=== PATIENT | female | born 1985 | race Caucasian/White ===

== ENCOUNTER → 2018-08-31 | Outpatient (CLI) | payer BC ==
--- NOTE | 2018-08-31 17:08 | Diagnostic Imaging Report ---
INDICATION: survey. TECHNIQUE: Multiple real-time grayscale images were obtained over the gravid uterus. COMPARISON: None. FINDINGS: Placenta is posterior without evidence of previa. cardiac activity is noted with a rate of 143 beats per minute. No anomalies identified however the umbilical cord insertion site is not well appreciated. biometry indicates gestational age of 26 weeks and 6 days. Amniotic fluid levels are unremarkable. There is no maternal adnexal region abnormality. IMPRESSION: 1. Unremarkable obstetrical ultrasound although umbilical cord insertion was not visualized. 2. Estimated gestational age is 26 weeks and 6 days with sonographic EDC of 12/01/2018. Biometrical measurements are as follows: Biparietal 6.27 cm, age 25 weeks 3 days. Head circumference 24.33 cm, age 26 weeks 3 days. Abdominal circumference 22.28 cm, age 26 weeks 5 days. Femur length 5.34 cm, age 28 weeks 3 days. Sonographic estimate age: 26 weeks 6 days. Sonographic estimated date of delivery: 12/01/18. Estimated Weight: 1035 gm (+/- 151 gm). LMP percentile: 69%. heart rate: 143 beats per minute. number: 1 of 1. Dictated by: Dictated on workstation # [id number]
== END ==
LOC: RAD 11:52
PROVIDERS: ATTEND Obstetrics & Gynecology
DX: Z36.89 Encounter for other specified antenatal screening (principal); Z3A.26 26 weeks gestation of pregnancy
CPT/HCPCS: 76805

== ENCOUNTER 2018-11-25 22:54 | Inpatient (IN) | payer BC ==
[~2018-11-25] VITALS: Ht 177.8 cm; Wt 112.0 kg
--- NOTE | 2018-11-25 23:00 | NUR ---
ROLDAN IVEY presented to unit via ambulation from ED, accompanied by family, with c/o WATER BROKE/CONTRACTIONS. ROLDAN IVEY weighed, gowned, voided, and to bed. EFHM and TOCO applied, VS taken. ROLDAN IVEY oriented to bed controls, call light, TV, heat, and A/C controls.
[2018-11-25 23:05] VITALS: BP 149/85
[2018-11-25] MEDS ORDERED: D5 LR IV SOLUTION 1,000 ML IV ONE (23:05)
[2018-11-25] MEDS ORDERED: AMPICILLIN FOR IV USE 2,000 MG VIAL ONE (23:09)
[2018-11-25] MEDS ORDERED: WATER (STERILE) FOR INJECTION 20 ML ONE (23:09)
[2018-11-25] MEDS ORDERED: PREN1TAB19 PO (23:17)
[2018-11-25] MEDS ORDERED: AMPICILLIN FOR IV USE 2,000 MG in WATER (STERILE) FOR INJECTION 14.8 ML IV SCH (23:24)
[2018-11-25] MEDS: D5 LR IV SOLUTION 1,000 ML IV SCH (23:31)
[2018-11-25 23:51] LABS: BASOPHILS % (AUTO) 0 % (0-10); EOSINOPHILS # (AUTO) 0.1 10^3/uL (0.0-0.3); EOSINOPHILS % (AUTO) 1 % (0-10); HEMATOCRIT 37 % (35-52); HEMOGLOBIN 12.5 G/DL (11.5-16.0); LYMPHOCYTES # (AUTO) 2.5 X 10^3 (1.0-4.0); LYMPHOCYTES % (AUTO) 18 % (12-44); MEAN CORPUSCULAR HEMOGLOBIN 31 PG (25-34); MEAN CORPUSCULAR HGB CONC 34 G/DL (32-36); MEAN CORPUSCULAR VOLUME 93 FL (80-99); MEAN PLATELET VOLUME 10.1 FL (7.4-10.4); MONOCYTES # (AUTO) 1.2 X 10^3 (0.0-1.0); MONOCYTES % (AUTO) 8 % (0-12); NEUTROPHILS # (AUTO) 10.2 X 10^3 (1.8-7.8); NEUTROPHILS % (AUTO) 73 % (42-75); PLATELET COUNT 236 10^3/uL (130-400); RED CELL DISTRIBUTION WIDTH 13.7 % (10.0-14.5); WHITE BLOOD COUNT 13.9 10^3/uL (4.3-11.0)
[2018-11-26] VITALS (64 sets, daily range): BP systolic 93–157; BP diastolic 54–98
--- OUTSIDE RECORDS SUMMARY | 2018-11-26 01:38 | XMS REPORT | Clinical Summary ---
Author Author Admin, SASHA Organization [facility] Address Unknown Phone Unavailable Allergies, Adverse Reactions, Alerts Allergy Name Reaction Description Start Date Severity Status Provider FLU VACCINE swelling at injection site Moderate Active Zuleima Santana MD NKDA Critical No Longer Active Zuleima Santana MD NKDA Critical Inactive Zuleima Santana MD Conditions or Problems Problem Name Problem Code Onset Date Status Entry Date Provider Comment Standard Description Annotate Vaginal lesion 623.8 Active Corina Reyes APRN Other specified noninflammatory disorders of vagina vaginal tag with hair wrapped around it. Tag approximately 2cm in length. Tag just inside vaginal opening on left. 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 Active Zuleima Santana MD Recurrent loss without current Contraceptive management V25.9 Active Zuleima Santana MD Encounter for unspecified contraceptive management Preconception counseling V26.49 Active Zuleima Santana MD Other procreative management counseling and advice BMI 37-37.9 Inactive Paris Worley Body Mass Index 37.0-37.9, adult Obesity Class II (BMI 35-39.9) Inactive Paris Worley Obesity, unspecified Supervision of other normal V22.1 Active Zuleima Santana MD Supervision of other normal BMI 37-37.9 Inactive Paris Worley Obesity Class II (BMI 35-39.9) Inactive Paris Worley Medication List Medication Instructions Start Date Stop Date Generic Name NDC Status Provider Patient Instruction ONE-A-DAY WOMENS 1 28-0.8-235 MG ORAL CAPSULE 1 tablet daily PRENAT-FE [id number]-HZ-[id number] 3 08741112512 Active Paris Brunilda Active ONE-A-DAY ADULT VITACRAVES+DHA ORAL TABLET CHEWABLE MULTIPLE VITAMIN 85042236341 No Longer Active Paris Brunilda Active NEXPLANON 68 MG SUBCUTANEOUS IMPLANT ETONOGESTREL 38345275687 No Longer Active Paris Brunilda Active NEXPLANON 68 MG SUBCUTANEOUS IMPLANT NEXPLANON 68 MG SUBCUTANEOUS IMPLANT ETONOGESTREL Inactive ONE-A-DAY ADULT VITACRAVES+DHA ORAL TABLET CHEWABLE ONE-A-DAY ADULT VITACRAVES+DHA ORAL TABLET CHEWABLE MULTIPLE VITAMIN Inactive Immunizations Vaccine Administration Date Value Standard Description hepatitis B vaccine series yes hepatitis B vaccine, unspecified formulation Vital Signs Date Name Value Unit Range Description blood pressure, diastolic 82 mm[Hg] BP chery blood pressure, systolic 121 mm[Hg] BP sys height E&M 66 [in_us] Bdy height pulse rate E&M 100 /min Heart rate temperature E&M 97.0 [degF] Body temperature weight E&M 234 [lb_av] Weight Measured Diagnostic Results Date Name Value Unit Range Description Lab Report: ABO GROUP & RH TYPE, ANTIBODY SCREEN, RBCW/REFL I, CBC (INCL ... - Blood bank ABO blood group A Rh antigen RH (D) NEGATIVE antibody screen, serum NO ANTIBODIES DETECTED Lab Report: ABO GROUP & RH TYPE, ANTIBODY SCREEN, RBCW/REFL I, CBC (INCL ... - Chemistry hepatitis B surface antigen NON-REACTIVE NON-REACTIVE rapid plasma reagin antibody titer NON-REACTIVE NON-REACTIVE Lab Report: ABO GROUP & RH TYPE, ANTIBODY SCREEN, RBCW/REFL I, CBC (INCL ... - Hematology leukocyte count, blood 10.9 THOUSAND/UL 10*3/mm3 3.8-10.8 erythrocyte (RBC) count 4.66 MILLION/UL 10*6/mm3 3.80-5.10 hemoglobin, blood 14.6 g/dL 11.7-15.5 hematocrit, blood 42.4 % 35.0-45.0 mean corpuscular volume, RBC 91.0 fL 80.0-100.0 mean corpuscular hemoglobin, RBC 31.3 pg 27.0-33.0 mean corpuscular hemoglobin concentration, RBC 34.4 G/DL % 32.0-36.0 red blood cell distribution width 12.2 % 11.0-15.0 platelet count 270 THOUSAND/UL 10*3/mm3 268-729 7140/12/27 mean platelet volume 9.7 fL 7.5-12.5 Lab Report: ABO GROUP & RH TYPE, ANTIBODY SCREEN, RBCW/REFL I, CBC (INCL ... - Lab chlamydia DNA probe NOT DETECTED NOT DETECTED Lab Report: ABO GROUP & RH TYPE, ANTIBODY SCREEN, RBCW/REFL I, CBC (INCL ... - Microbiology Neisseria gonorrhoeae DNA probe NOT DETECTED NOT DETECTED Lab Report: ABO GROUP & RH TYPE, ANTIBODY SCREEN, RBCW/REFL I, CBC (INCL ... - Serology rubella antibody, serum, IgG 3.86 Lab Report: Thyroid Stimulating Hormone (L) - Chemistry TSH 1.63 m[iU]/mL 0.36-3.74 Lab Report: UADIP W/MICRO, AUTO, Wet Prep - Chemistry protein, total urine random Negative mg/dL Negative RBC, urine, dipstick Trace-intact Negative Lab Report: UADIP W/MICRO, AUTO, Wet Prep - Urinalysis urobilinogen, urine, semiquantitative (dipstick) 0.2 E.U./dL Normal leukocyte esterase, urine, by dipstick 2+ Negative nitrite, urine, semiquantitative Negative Negative glucose, urine, semiquantitative Negative Negative ketones, urine, by test strip Negative Negative bilirubin, urine Negative Negative urine color Dark yellow Colorless;Lightyellow;Straw;Yellow appearance, urine Slightly Cloudy Clear specific gravity, urine 1.020 1.000-1.030 pH, urine, semiquantitative 6.0 5.0-8.5 Office Visit: Initial OB Visit - Genetics/fertility test, date 04/12/2018 Office Visit: Initial OB Visit - Microbiology Herpes Simplex Virus Genital no Office Visit: Initial OB Visit - Urinalysis protein, urine, semiquantitative (dipstick) UC glucose, urine, semiquantitative UC nitrite, urine, semiquantitative UC Encounters Code Encounter Date Provider Facility CPT-92566 Level 3 New Patient 12:10:04 CDT Zuleima Santana MD [facility] CPT-37914 Level 3 Est. Patient 16:47:53 REGULATOR TESTER Corina Reyes APRN [facility] -[facility] Procedures Code Procedure Name Date Entry Date Standard Description CPT-32669D Sono OB comp <14 weeks (Max Only) - XRAY USE ONLY 17:01:43 REGULATOR TESTER CPT-37847 Visit 10:45:42 REGULATOR TESTER CPT-92297 Spec Collection and Handling Fee 10:11:46 REGULATOR TESTER CPT-48072 Spec Collection and Handling Fee 09:00:45 REGULATOR TESTER CPT-78624 Nexplanon Removal 12:10:05 CDT CPT-64062V Drug Screen Collection - XRAY USE ONLY 14:19:32 CDT
--- OUTSIDE RECORDS SUMMARY | 2018-11-26 01:38 | XMS REPORT ---
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 Medications Medication Code System Code Instructions Start Date End Date Status Dosage Amoxicillin [facility] [address]-76 500 MG Orally 3 times a day October 15, 2015 October 25, 2015 1 capsule Coconut Oil [facility] [address] 1000 MG Orally Once a day not defined Procedures Procedure Coding System Code Date Office Visit, Est Pt., Level 3 CPT-4 97692 October 15, 2015 STREP A ASSAY W/OPTIC CPT-4 65522 October 15, 2015 Vital Signs Date/Time: October 15, 2015 Cardiac Monitoring Heart Rate 88 bpm Weight 211.3 lbs Height 70 in Blood Pressure Diastolic 80 mmHg Blood Pressure Systolic 122 mmHg Results No Known Results Summary Purpose [employer] Submission
--- OUTSIDE RECORDS SUMMARY | 2018-11-26 01:38 | XMS REPORT ---
Author Author BRITTON IZAGUIRRE [employer] Address Unknown Phone Unavailable Care Team Providers Care Casting Operator Helper Name Role Phone BRITTON IZAGUIRRE CP Unavailable Allergies, Adverse Reactions, Alerts Substance Reaction Event Type N.K.D.A. 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
--- OUTSIDE RECORDS SUMMARY | 2018-11-26 01:38 | XMS REPORT ---
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 Medications Medication Code System Code Instructions Start Date End Date Status Dosage Amoxicillin [facility] [address]-61 500 MG Orally Twice a day Mar 19, 2015 Mar 29, 2015 2 capsules Procedures Procedure Coding System Code Date Office Visit, Est Pt., Level 3 CPT-4 08636 Mar 19, 2015 STREP A ASSAY W/OPTIC CPT-4 36476 Mar 19, 2015 CULTURE, BACTERIA, OTHER CPT-4 15733 Mar 19, 2015 Vital Signs Date/Time: Mar 19, 2015 Temperature 99.9 F Weight 208.3 lbs Height 70 in BMI 29.88 Index Blood Pressure Diastolic 74 mmHg Blood Pressure Systolic 116 mmHg Cardiac Monitoring Heart Rate 90 bpm Results Name Result Date Reference Range Unit Abnormality Flag STREP A (IN HOUSE) CULTURE (EAR, NOSE, SINUS, THROAT)-SPECIFY SOURCE Summary Purpose [employer] Submission
--- OUTSIDE RECORDS SUMMARY | 2018-11-26 01:39 | XMS REPORT | Clinical Summary ---
Author Author Admin, SASHA Organization [facility] Address Unknown Phone Unavailable Allergies, Adverse Reactions, [...] MG ORAL CAPSULE 1 tablet daily PRENAT-FE [id number]-MU-[id number] 3 07593125850 Active Paris Brunilda Active ONE-A-DAY ADULT VITACRAVES+DHA ORAL TABLET CHEWABLE MULTIPLE VITAMIN 42998457339 No Longer Active Paris Brunilda Active NEXPLANON 68 MG SUBCUTANEOUS IMPLANT ETONOGESTREL 61666069486 No Longer Active Paris Brunilda Active NEXPLANON [...] % 11.0-15.0 platelet count 270 THOUSAND/UL 10*3/mm3 685-630 0987/12/27 mean platelet volume 9.7 fL 7.5-12.5 Lab [...] UC Encounters Code Encounter Date Provider Facility CPT-01272 Level 3 New Patient 12:10:04 CDT Zuelima Santana MD [facility] CPT-33146 Level 3 Est. Patient 16:47:53 OUTBOUND TELEMARKETING REPRESENTATIVE Corina Reyes APRN [facility] -[facility] Procedures Code Procedure Name Date Entry Date Standard Description CPT-98031H Sono OB comp <14 weeks (Max Only) - XRAY USE ONLY 17:01:43 OUTBOUND TELEMARKETING REPRESENTATIVE CPT-53539 Visit 10:45:42 OUTBOUND TELEMARKETING REPRESENTATIVE CPT-42791 Spec Collection and Handling Fee 10:11:46 OUTBOUND TELEMARKETING REPRESENTATIVE CPT-09260 Spec Collection and Handling Fee 09:00:45 OUTBOUND TELEMARKETING REPRESENTATIVE CPT-87047 Nexplanon Removal 12:10:05 CDT CPT-46573X Drug Screen Collection - XRAY USE ONLY 14:19:32 CDT
--- OUTSIDE RECORDS SUMMARY | 2018-11-26 01:39 | XMS REPORT | Clinical Summary ---
Author Author Admin, SASHA Organization [facility] Address Unknown Phone Unavailable Allergies, Adverse Reactions, Alerts Allergy Name Reaction Description Start Date Severity Status Provider FLU VACCINE swelling at injection site Moderate Active Zuleima Santana MD NKDA Critical No Longer Active Zuleima Santana MD NKDA Critical Inactive Zuleima Santana MD Conditions or Problems Problem Name Problem Code Onset Date Status Entry Date Provider Comment Standard Description Annotate Vaginal lesion 623.8 Active Corian Reyes APRN Other specified noninflammatory disorders of [...] MG ORAL CAPSULE 1 tablet daily PRENAT-FE OFCBAWCS-MR-[id number] 3 54617507321 Active Paris Brunilda Active ONE-A-DAY ADULT VITACRAVES+DHA ORAL TABLET CHEWABLE MULTIPLE VITAMIN 21499557976 No Longer Active Paris Brunilda Active NEXPLANON 68 MG SUBCUTANEOUS IMPLANT ETONOGESTREL 03851865382 No Longer Active Paris Brunilda Active NEXPLANON [...] % 11.0-15.0 platelet count 270 THOUSAND/UL 10*3/mm3 583-295 1277/12/27 mean platelet volume 9.7 fL 7.5-12.5 Lab [...] UC Encounters Code Encounter Date Provider Facility CPT-13099 Level 3 New Patient 12:10:04 CDT Zuleima Santana MD [facility] CPT-05774 Level 3 Est. Patient 16:47:53 BUSINESS PROPOSAL REP Corina Reyes APRN [facility] -[facility] Procedures Code Procedure Name Date Entry Date Standard Description CPT-56931R Sono OB comp <14 weeks (Max Only) - XRAY USE ONLY 17:01:43 BUSINESS PROPOSAL REP CPT-39548 Visit 10:45:42 BUSINESS PROPOSAL REP CPT-10864 Spec Collection and Handling Fee 10:11:46 BUSINESS PROPOSAL REP CPT-73287 Spec Collection and Handling Fee 09:00:45 BUSINESS PROPOSAL REP CPT-86113 Nexplanon Removal 12:10:05 CDT CPT-62919T Drug Screen Collection - XRAY USE ONLY 14:19:32 CDT
--- OUTSIDE RECORDS SUMMARY | 2018-11-26 01:39 | XMS REPORT | Clinical Summary ---
Author Author Admin, SASHA Organization [facility] Address Unknown Phone Unavailable Allergies, Adverse Reactions, [...] MG ORAL CAPSULE 1 tablet daily PRENAT-FE WBWWBXIF-FB-PGQQY 3 54150123130 Active Paris Brunilda Active ONE-A-DAY ADULT VITACRAVES+DHA ORAL TABLET CHEWABLE MULTIPLE VITAMIN 80497209804 No Longer Active Paris Brunilda Active NEXPLANON 68 MG SUBCUTANEOUS IMPLANT ETONOGESTREL 91810783489 No Longer Active Paris Brunilda Active NEXPLANON [...] % 11.0-15.0 platelet count 270 THOUSAND/UL 10*3/mm3 206-417 2596/12/27 mean platelet volume 9.7 fL 7.5-12.5 Lab [...] UC Encounters Code Encounter Date Provider Facility CPT-17587 Level 3 New Patient 12:10:04 CDT Zuleima Santana MD [facility] CPT-48884 Level 3 Est. Patient 16:47:53 DENTAL AMALGAM PROCESSOR Corina Reyes APRN [facility] Procedures Code Procedure Name Date Entry Date Standard Description CPT-13037Q Sono OB comp <14 weeks (Max Only) - XRAY USE ONLY 17:01:43 DENTAL AMALGAM PROCESSOR CPT-91751 Visit 10:45:42 DENTAL AMALGAM PROCESSOR CPT-90190 Spec Collection and Handling Fee 10:11:46 DENTAL AMALGAM PROCESSOR CPT-50517 Spec Collection and Handling Fee 09:00:45 DENTAL AMALGAM PROCESSOR CPT-49477 Nexplanon Removal 12:10:05 CDT CPT-63516S Drug Screen Collection - XRAY USE ONLY 14:19:32 CDT
--- OUTSIDE RECORDS SUMMARY | 2018-11-26 01:39 | XMS REPORT | Clinical Summary ---
Author Author Admin, SASHA Organization [facility] Address Unknown Phone Unavailable Allergies, Adverse Reactions, [...] MG ORAL CAPSULE 1 tablet daily PRENAT-FE MIMQWIPJ-SP-NLHLW 3 08129954767 Active Paris Brunilda Active ONE-A-DAY ADULT VITACRAVES+DHA ORAL TABLET CHEWABLE MULTIPLE VITAMIN 49803034833 No Longer Active Paris Brunilda Active NEXPLANON 68 MG SUBCUTANEOUS IMPLANT ETONOGESTREL 58478433908 No Longer Active Paris Brunilda Active NEXPLANON [...] % 11.0-15.0 platelet count 270 THOUSAND/UL 10*3/mm3 573-021 7571/12/27 mean platelet volume 9.7 fL 7.5-12.5 Lab [...] UC Encounters Code Encounter Date Provider Facility CPT-04756 Level 3 New Patient 12:10:04 CDT Zuleima Santana MD [facility] CPT-12837 Level 3 Est. Patient 16:47:53 MAIL DELIVERER Corina Reyes APRN [facility] -[facility] Procedures Code Procedure Name Date Entry Date Standard Description CPT-99242C Sono OB comp <14 weeks (Max Only) - XRAY USE ONLY 17:01:43 MAIL DELIVERER CPT-20178 Visit 10:45:42 MAIL DELIVERER CPT-54004 Spec Collection and Handling Fee 10:11:46 MAIL DELIVERER CPT-06320 Spec Collection and Handling Fee 09:00:45 MAIL DELIVERER CPT-27512 Nexplanon Removal 12:10:05 CDT CPT-12921T Drug Screen Collection - XRAY USE ONLY 14:19:32 CDT
--- OUTSIDE RECORDS SUMMARY | 2018-11-26 01:39 | XMS REPORT | Clinical Summary ---
Author Author Admin, SASHA Organization [facility] Address Unknown Phone Unavailable Allergies, Adverse Reactions, [...] MG ORAL CAPSULE 1 tablet daily PRENAT-FE EICQBAWY-FC-TOOZY 3 59576876137 Active Paris Brunilda Active ONE-A-DAY ADULT VITACRAVES+DHA ORAL TABLET CHEWABLE MULTIPLE VITAMIN 62084976063 No Longer Active Paris Brunilda Active NEXPLANON 68 MG SUBCUTANEOUS IMPLANT ETONOGESTREL 61925269967 No Longer Active Paris Brunilda Active NEXPLANON [...] % 11.0-15.0 platelet count 270 THOUSAND/UL 10*3/mm3 737-265 2790/12/27 mean platelet volume 9.7 fL 7.5-12.5 Lab [...] UC Encounters Code Encounter Date Provider Facility CPT-29974 Level 3 New Patient 12:10:04 CDT Zuleima Santana MD [facility] CPT-91189 Level 3 Est. Patient 16:47:53 PLASTERER TENDER Corina Reyes APRN [facility] -[facility] Procedures Code Procedure Name Date Entry Date Standard Description CPT-06287C Sono OB comp <14 weeks (Max Only) - XRAY USE ONLY 17:01:43 PLASTERER TENDER CPT-27555 Visit 10:45:42 PLASTERER TENDER CPT-46865 Spec Collection and Handling Fee 10:11:46 PLASTERER TENDER CPT-14270 Spec Collection and Handling Fee 09:00:45 PLASTERER TENDER CPT-49510 Nexplanon Removal 12:10:05 CDT CPT-26440R Drug Screen Collection - XRAY USE ONLY 14:19:32 CDT
--- OUTSIDE RECORDS SUMMARY | 2018-11-26 01:40 | XMS REPORT | Clinical Summary ---
Author Author Admin, SASHA Organization [facility] Address Unknown Phone Unavailable Allergies, Adverse [...] MG ORAL CAPSULE 1 tablet daily PRENAT-FE THFZTLBR-GL-JQZMA 3 49146035048 Active Paris Brunilda Active ONE-A-DAY ADULT VITACRAVES+DHA ORAL TABLET CHEWABLE MULTIPLE VITAMIN 29057723907 No Longer Active Paris Brunilda Active NEXPLANON 68 MG SUBCUTANEOUS IMPLANT ETONOGESTREL 05839437776 No Longer Active Paris Brunilda Active NEXPLANON [...] % 11.0-15.0 platelet count 270 THOUSAND/UL 10*3/mm3 830-233 7073/12/27 mean platelet volume 9.7 fL 7.5-12.5 Lab [...] UC Encounters Code Encounter Date Provider Facility CPT-71058 Level 3 New Patient 12:10:04 CDT Zuleima Santana MD [facility] CPT-03220 Level 3 Est. Patient 16:47:53 CONTROL OPERATOR Corina Reyes APRN [facility] -[facility] Procedures Code Procedure Name Date Entry Date Standard Description CPT-56972O Sono OB comp <14 weeks (Max Only) - XRAY USE ONLY 17:01:43 CONTROL OPERATOR CPT-41772 Visit 10:45:42 CONTROL OPERATOR CPT-19680 Spec Collection and Handling Fee 10:11:46 CONTROL OPERATOR CPT-30738 Spec Collection and Handling Fee 09:00:45 CONTROL OPERATOR CPT-94621 Nexplanon Removal 12:10:05 CDT CPT-03825L Drug Screen Collection - XRAY USE ONLY 14:19:32 CDT
--- OUTSIDE RECORDS SUMMARY | 2018-11-26 01:40 | XMS REPORT | Clinical Summary ---
Author Author Admin, SASHA Organization [facility] Address Unknown Phone Unavailable Allergies, Adverse Reactions, [...] MG ORAL CAPSULE 1 tablet daily PRENAT-FE NDTLTSHP-HI-PGEEZ 3 31686730571 Active Paris Brunilda Active ONE-A-DAY ADULT VITACRAVES+DHA ORAL TABLET CHEWABLE MULTIPLE VITAMIN 80813956835 No Longer Active Paris Brunilda Active NEXPLANON 68 MG SUBCUTANEOUS IMPLANT ETONOGESTREL 46806842387 No Longer Active Paris Brunilda Active NEXPLANON [...] % 11.0-15.0 platelet count 270 THOUSAND/UL 10*3/mm3 303-606 9916/12/27 mean platelet volume 9.7 fL 7.5-12.5 Lab [...] UC Encounters Code Encounter Date Provider Facility CPT-02097 Level 3 New Patient 12:10:04 CDT Zuleima Santana MD [facility] CPT-42289 Level 3 Est. Patient 16:47:53 EDGING MACHINE FEEDER Corina Reyes APRN [facility] -[facility] Procedures Code Procedure Name Date Entry Date Standard Description CPT-75106W Sono OB comp <14 weeks (Max Only) - XRAY USE ONLY 17:01:43 EDGING MACHINE FEEDER CPT-54692 Visit 10:45:42 EDGING MACHINE FEEDER CPT-78159 Spec Collection and Handling Fee 10:11:46 EDGING MACHINE FEEDER CPT-03034 Spec Collection and Handling Fee 09:00:45 EDGING MACHINE FEEDER CPT-03584 Nexplanon Removal 12:10:05 CDT CPT-43751F Drug Screen Collection - XRAY USE ONLY 14:19:32 CDT
--- OUTSIDE RECORDS SUMMARY | 2018-11-26 01:40 | XMS REPORT | Clinical Summary ---
Author Author Admin, Leilani Organization [facility] Address Unknown Phone Unavailable Allergies, Adverse [...] Zuleima Santana MD Supervision of other normal Obesity Class II (BMI 35-39.9) Inactive Paris Worley BMI 37-37.9 Inactive Paris Worley Medication List Medication Instructions Start Date Stop Date Generic Name NDC Status Provider Patient Instruction ONE-A-DAY WOMENS 1 28-0.8-235 MG ORAL CAPSULE 1 tablet daily PRENAT-FE GDZXXZZP-PT-IBIHA 3 71097349458 Active Paris Brunilda Active ONE-A-DAY ADULT VITACRAVES+DHA ORAL TABLET CHEWABLE MULTIPLE VITAMIN 04735287141 No Longer Active Paris Brunilda Active NEXPLANON 68 MG SUBCUTANEOUS IMPLANT ETONOGESTREL 09320777542 No Longer Active Paris Brunilda Active NEXPLANON [...] % 11.0-15.0 platelet count 270 THOUSAND/UL 10*3/mm3 393-751 5053/12/27 mean platelet volume 9.7 fL 7.5-12.5 Lab [...] UC Encounters Code Encounter Date Provider Facility CPT-07925 Level 3 New Patient 12:10:04 CDT Zuleima Santana MD [facility] CPT-50464 Level 3 Est. Patient 16:47:53 PANTS MAKER Corina Reyes APRN [facility] -[facility] Procedures Code Procedure Name Date Entry Date Standard Description CPT-96688Q Sono OB comp <14 weeks (Max Only) - XRAY USE ONLY 17:01:43 PANTS MAKER CPT-89418 Visit 10:45:42 PANTS MAKER CPT-99413 Spec Collection and Handling Fee 10:11:46 PANTS MAKER CPT-36099 Spec Collection and Handling Fee 09:00:45 PANTS MAKER CPT-10809 Nexplanon Removal 12:10:05 CDT CPT-06532H Drug Screen Collection - XRAY USE ONLY 14:19:32 CDT
--- OUTSIDE RECORDS SUMMARY | 2018-11-26 01:40 | XMS REPORT | Clinical Summary ---
Author Author Admin, SASHA Organization [facility] Address Unknown Phone Unavailable Allergies, Adverse Reactions, [...] MG ORAL CAPSULE 1 tablet daily PRENAT-FE SSMIHLHH-UV-PJNZM 3 60784218544 Active [place] Brunilda Active ONE-A-DAY ADULT VITACRAVES+DHA ORAL TABLET CHEWABLE MULTIPLE VITAMIN 12304666947 No Longer Active Paris Brunilda Active NEXPLANON 68 MG SUBCUTANEOUS IMPLANT ETONOGESTREL 23796141726 No Longer Active Paris Brunilda Active NEXPLANON [...] % 11.0-15.0 platelet count 270 THOUSAND/UL 10*3/mm3 772-618 6000/12/27 mean platelet volume 9.7 fL 7.5-12.5 Lab [...] UC Encounters Code Encounter Date Provider Facility CPT-57683 Level 3 New Patient 12:10:04 CDT Zuleima Santana MD [facility] CPT-60100 Level 3 Est. Patient 16:47:53 DIRECTOR BLOOD BANK Corina Reyes APRN [facility] -[facility] Procedures Code Procedure Name Date Entry Date Standard Description CPT-24409M Sono OB comp <14 weeks (Max Only) - XRAY USE ONLY 17:01:43 DIRECTOR BLOOD BANK CPT-21684 Visit 10:45:42 DIRECTOR BLOOD BANK CPT-92661 Spec Collection and Handling Fee 10:11:46 DIRECTOR BLOOD BANK CPT-38778 Spec Collection and Handling Fee 09:00:45 DIRECTOR BLOOD BANK CPT-55842 Nexplanon Removal 12:10:05 CDT CPT-94420T Drug Screen Collection - XRAY USE ONLY 14:19:32 CDT
--- OUTSIDE RECORDS SUMMARY | 2018-11-26 01:40 | XMS REPORT | Clinical Summary ---
Author Author Admin, SASHA Organization [facility] Address Unknown Phone Unavailable Allergies, Adverse Reactions, [...] MG ORAL CAPSULE 1 tablet daily PRENAT-FE EHQGXLDZ-TQ-IJXPP 3 01724354892 Active [place] Brunilda Active ONE-A-DAY ADULT VITACRAVES+DHA ORAL TABLET CHEWABLE MULTIPLE VITAMIN 86118391591 No Longer Active Paris Brunilda Active NEXPLANON 68 MG SUBCUTANEOUS IMPLANT ETONOGESTREL 88428866589 No Longer Active [place] Brunilda Active NEXPLANON 68 MG SUBCUTANEOUS IMPLANT NEXPLANON 68 MG SUBCUTANEOUS IMPLANT ETONOGESTREL Inactive ONE-A-DAY ADULT VITACRAVES+DHA ORAL TABLET CHEWABLE ONE-A-DAY ADULT VITACRAVES+DHA ORAL TABLET CHEWABLE MULTIPLE VITAMIN Inactive Diagnostic Results Date Name Value Unit Range [...] % 11.0-15.0 platelet count 270 THOUSAND/UL 10*3/mm3 670-034 9543/12/27 mean platelet volume 9.7 fL 7.5-12.5 Lab [...] UADIP W/MICRO, AUTO, Wet Prep - Chemistry RBC, urine, dipstick Trace-intact Negative protein, total urine random Negative mg/dL Negative Lab Report: UADIP W/MICRO, AUTO, Wet Prep - Urinalysis glucose, urine, semiquantitative Negative Negative ketones, urine, by test strip Negative Negative bilirubin, urine Negative Negative urine color Dark yellow Colorless;Lightyellow;Straw;Yellow appearance, urine Slightly Cloudy Clear specific gravity, urine 1.020 1.000-1.030 pH, urine, semiquantitative 6.0 5.0-8.5 urobilinogen, urine, semiquantitative (dipstick) 0.2 E.U./dL Normal leukocyte esterase, urine, by dipstick 2+ Negative nitrite, urine, semiquantitative Negative Negative Encounters Code Encounter Date Provider Facility CPT-23966 Level 3 New Patient 12:10:04 CDT Zuleima Santana MD [facility] CPT-40822 Level 3 Est. 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 Procedures Code Procedure Name Date Entry Date Standard Description CPT-84233A Sono OB comp <14 weeks (Max Only) - XRAY USE ONLY 17:01:43 FACTORY MACHINE COMPUTER OPERATOR CPT-15463 Visit 10:45:42 FACTORY MACHINE COMPUTER OPERATOR CPT-17299 Spec Collection and Handling Fee 10:11:46 FACTORY MACHINE COMPUTER OPERATOR CPT-68296 Spec Collection and Handling Fee 09:00:45 FACTORY MACHINE COMPUTER OPERATOR CPT-02311 Nexplanon Removal 12:10:05 CDT CPT-50569C Drug Screen Collection - XRAY USE ONLY 14:19:32 CDT
--- OUTSIDE RECORDS SUMMARY | 2018-11-26 01:41 | XMS REPORT | Clinical Summary ---
Author Author Admin, SASHA Organization [facility] Address Unknown Phone Unavailable Allergies, Adverse Reactions, Alerts Allergy Name Reaction Description Start Date Severity Status Provider No Known Allergies Paris Hayna Conditions or Problems Problem Name Problem Code [...] MD Other procreative management counseling and advice Medication List Medication Instructions Start Date Stop Date Generic Name NDC Status Provider Patient Instruction NEXPLANON 68 MG SUBCUTANEOUS IMPLANT ETONOGESTREL 04633463840 Active Zuleima Santana MD Active ONE-A-DAY ADULT VITACRAVES+DHA ORAL TABLET CHEWABLE MULTIPLE VITAMIN 59653713377 Active Zuleima Santana MD Active Encounters Code Encounter Date Provider Facility CPT-59038 Level 3 New Patient 12:10:04 CDT Zlueima Santana MD [facility] CPT-09502 Level 3 Est. Patient 16:47:53 RAVELER Corina Reyes APRN [facility] -[facility] Procedures Code Procedure Name Date Entry Date Standard Description CPT-23128 Spec Collection and Handling Fee 09:00:45 RAVELER CPT-04481 Nexplanon Removal 12:10:05 CDT CPT-93653V Drug Screen Collection - XRAY USE ONLY 14:19:32 CDT
--- OUTSIDE RECORDS SUMMARY | 2018-11-26 01:41 | XMS REPORT | Clinical Summary ---
Author Author Admin, SASHA Organization [facility] Address Unknown Phone Unavailable Allergies, Adverse Reactions, [...] subpopulations Recurrent loss without current 629.81 Active Zuelima Santana MD Recurrent loss without current Contraceptive [...] MG ORAL CAPSULE 1 tablet daily PRENAT-FE ARGECJZQ-EY-JZTHF 3 20260734107 Active [place] Brunilda Active ONE-A-DAY ADULT VITACRAVES+DHA ORAL TABLET CHEWABLE MULTIPLE VITAMIN 32715979418 No Longer Active Paris Brunilda Active NEXPLANON 68 MG SUBCUTANEOUS IMPLANT ETONOGESTREL 27026555193 No Longer Active [place] Brunilda Active NEXPLANON 68 MG SUBCUTANEOUS IMPLANT NEXPLANON 68 MG SUBCUTANEOUS IMPLANT ETONOGESTREL Inactive ONE-A-DAY ADULT VITACRAVES+DHA ORAL TABLET CHEWABLE ONE-A-DAY ADULT VITACRAVES+DHA ORAL TABLET CHEWABLE MULTIPLE VITAMIN Inactive Diagnostic Results Date Name Value Unit Range Description Lab Report: Thyroid Stimulating Hormone (L) - [...] Negative Encounters Code Encounter Date Provider Facility CPT-09329 Level 3 New Patient 12:10:04 CDT Zuleima Santana MD [facility] CPT-90631 Level 3 Est. Patient 16:47:53 SURGICAL AIDE Corina Reyes APRN [facility] -[facility] Procedures Code Procedure Name Date Entry Date Standard Description CPT-99680S Sono OB comp <14 weeks ([place] Only) - XRAY USE ONLY 17:01:43 SURGICAL AIDE CPT-91295 Visit 10:45:42 SURGICAL AIDE CPT-17134 Spec Collection and Handling Fee 10:11:46 SURGICAL AIDE CPT-41166 Spec Collection and Handling Fee 09:00:45 SURGICAL AIDE CPT-59316 Nexplanon Removal 12:10:05 CDT CPT-19885T Drug Screen Collection - XRAY USE ONLY 14:19:32 CDT
--- OUTSIDE RECORDS SUMMARY | 2018-11-26 01:41 | XMS REPORT | Clinical Summary ---
Author Author Admin, SASHA Organization [facility] Address Unknown Phone Unavailable Allergies, Adverse Reactions, Alerts Allergy Name Reaction Description Start Date Severity Status Provider No Known Allergies Raquel Mao Conditions or Problems Problem Name Problem Code [...] Santana MD Encounter for unspecified contraceptive management Medication List Medication Instructions Start Date Stop Date Generic Name NDC Status Provider Patient Instruction No Drug Therapy Prescribed - none known did ask Raquel Mao NEXPLANON 68 MG SC IMPL ETONOGESTREL 44501036492 Active Zuleima Santana MD Active ONE-A-DAY ADULT VITACRAVES+DHA ORAL CHEW MULTIPLE VITAMIN 21226911923 Active Zuleima Santana MD Active Diagnostic Results Date Name Value Unit Range Description Lab Report: Thyroid Stimulating Hormone (L), Free Thyroxine (L) - Chemistry TSH 1.25 m[iU]/mL 0.36-3.74 thyroxine, serum, free 1.06 ng/dL 0.59-1.17 Encounters Code Encounter Date Provider Facility CPT-38586 Level 3 New Patient 12:10:04 CDT Zuleima Santana MD [facility] CPT-41657 Level 3 Est. Patient 16:47:53 VALVER Corina Reyes APRN [facility] Procedures Code Procedure Name Date Entry Date Standard Description CPT-55591 Nexplanon Removal 12:10:05 CDT CPT-07829K Drug Screen Collection - XRAY USE ONLY 14:19:32 CDT
--- OUTSIDE RECORDS SUMMARY | 2018-11-26 01:41 | XMS REPORT | Clinical Summary ---
Author Author Admin, Leilani Organization [facility] Address Unknown Phone Unavailable Allergies, Adverse Reactions, [...] MG ORAL CAPSULE 1 tablet daily PRENAT-FE RZDYSWZI-EQ-KNNPI 3 78228149192 Active [place] Brunilda Active ONE-A-DAY ADULT VITACRAVES+DHA ORAL TABLET CHEWABLE MULTIPLE VITAMIN 09055835719 No Longer Active Paris Brunilda Active NEXPLANON 68 MG SUBCUTANEOUS IMPLANT ETONOGESTREL 86805408141 No Longer Active Paris Brunilda Active NEXPLANON [...] Negative Encounters Code Encounter Date Provider Facility CPT-91252 Level 3 New Patient 12:10:04 CDT Zuleima Santana MD [facility] CPT-10891 Level 3 Est. 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 Procedures Code Procedure Name Date Entry Date Standard Description CPT-42803H Sono OB comp <14 weeks ([place] Only) - XRAY USE ONLY 17:01:43 SCRAP SEPARATOR CPT-40092 Visit 10:45:42 SCRAP SEPARATOR CPT-72232 Spec Collection and Handling Fee 10:11:46 SCRAP SEPARATOR CPT-81384 Spec Collection and Handling Fee 09:00:45 SCRAP SEPARATOR CPT-29150 Nexplanon Removal 12:10:05 CDT CPT-27118Q Drug Screen Collection - XRAY USE ONLY 14:19:32 CDT
--- OUTSIDE RECORDS SUMMARY | 2018-11-26 01:41 | XMS REPORT | Clinical Summary ---
Author Author Admin, Leilani Organization [facility] Address Unknown Phone Unavailable Allergies, Adverse Reactions, [...] MG ORAL CAPSULE 1 tablet daily PRENAT-FE AVGUKSTJ-QN-OANAN 3 30420449841 Active Paris Brunilda Active ONE-A-DAY ADULT VITACRAVES+DHA ORAL TABLET CHEWABLE MULTIPLE VITAMIN 06029121072 No Longer Active Paris Brunilda Active NEXPLANON 68 MG SUBCUTANEOUS IMPLANT ETONOGESTREL 89895093786 No Longer Active Paris Brunilda Active NEXPLANON [...] Negative Encounters Code Encounter Date Provider Facility CPT-67779 Level 3 New Patient 12:10:04 CDT Zuleima Santana MD [facility] CPT-85442 Level 3 Est. Patient 16:47:53 BROKER IN CHARGE Corina Reyes APRN [facility] -[facility] Procedures Code Procedure Name Date Entry Date Standard Description CPT-45313 Visit 10:45:42 BROKER IN CHARGE CPT-54514 Spec Collection and Handling Fee 10:11:46 BROKER IN CHARGE CPT-84999 Spec Collection and Handling Fee 09:00:45 BROKER IN CHARGE CPT-52414 Nexplanon Removal 12:10:05 CDT CPT-46571V Drug Screen Collection - XRAY USE ONLY 14:19:32 CDT
--- OUTSIDE RECORDS SUMMARY | 2018-11-26 01:41 | XMS REPORT | Clinical Summary ---
Author Author Admin, SASHA Organization [facility] Address Unknown Phone Unavailable Allergies, Adverse Reactions, Alerts Allergy Name Reaction Description Start Date Severity Status Provider No Known Allergies Paris Brunilda Conditions or Problems Problem Name Problem Code [...] contraceptive management Preconception counseling V26.49 Active Zuleima aSntana MD Other procreative management counseling and advice Medication List Medication Instructions Start Date Stop Date Generic Name NDC Status Provider Patient Instruction NEXPLANON 68 MG SC IMPL ETONOGESTREL 54525945377 Active Zuleima Santana MD Active ONE-A-DAY ADULT VITACRAVES+DHA ORAL CHEW MULTIPLE VITAMIN 32980612977 Active Zuleima Santana MD Active Vital Signs Date Name Value Unit Range Description blood pressure, diastolic 78 mm[Hg] BP chery blood pressure, systolic 124 mm[Hg] BP sys height E&M 66 [in_us] Bdy height pulse rate E&M 78 /min Heart rate temperature E&M 97.7 [degF] Body temperature weight E&M 218 [lb_av] Weight Measured Diagnostic Results Date Name Value Unit Range Description Lab Report: Bmyz-8-Ihtijviiza Alia/53233, ANTIBODY SCREEN, RBCW/REFL I, A ... - Blood bank antibody screen, serum NO ANTIBODIES DETECTED Rh antigen RH (D) NEGATIVE Lab Report: Lqyt-6-Tfypwtfxpr Alia/70733, ANTIBODY SCREEN, RBCW/REFL I, A ... - Hematology Blood type A Lab Report: Thyroid Stimulating Hormone (L), Free Thyroxine (L) - Chemistry TSH 1.25 m[iU]/mL 0.36-3.74 thyroxine, serum, free 1.06 ng/dL 0.59-1.17 Encounters Code Encounter Date Provider Facility CPT-07145 Level 3 New Patient 12:10:04 CDT Zuleima Santana MD [facility] CPT-32884 Level 3 Est. 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
--- OUTSIDE RECORDS SUMMARY | 2018-11-26 01:41 | XMS REPORT | Clinical Summary ---
Author Author Admin, SASHA Organization [facility] Address Unknown Phone Unavailable Allergies, Adverse Reactions, [...] MG ORAL CAPSULE 1 tablet daily PRENAT-FE TLVFFKOJ-BT-GRDWM 3 76940423120 Active [place] Brunilda Active ONE-A-DAY ADULT VITACRAVES+DHA ORAL TABLET CHEWABLE MULTIPLE VITAMIN 64308862835 No Longer Active Paris Brunilda Active NEXPLANON 68 MG SUBCUTANEOUS IMPLANT ETONOGESTREL 22378133265 No Longer Active Paris Brunilda Active NEXPLANON [...] Negative Encounters Code Encounter Date Provider Facility CPT-36535 Level 3 New Patient 12:10:04 CDT Zuleima Santana MD [facility] CPT-91607 Level 3 Est. Patient 16:47:53 SHIPPING CLERK PACKING Corina Reyes APRN [facility] -[facility] Procedures Code Procedure Name Date Entry Date Standard Description CPT-91832O Sono OB comp <14 weeks ([place] Only) - XRAY USE ONLY 17:01:43 SHIPPING CLERK PACKING CPT-15986 Visit 10:45:42 SHIPPING CLERK PACKING CPT-72660 Spec Collection and Handling Fee 10:11:46 SHIPPING CLERK PACKING CPT-69760 Spec Collection and Handling Fee 09:00:45 SHIPPING CLERK PACKING CPT-28583 Nexplanon Removal 12:10:05 CDT CPT-62391H Drug Screen Collection - XRAY USE ONLY 14:19:32 CDT
--- OUTSIDE RECORDS SUMMARY | 2018-11-26 01:41 | XMS REPORT | Clinical Summary ---
Author Author Admin, SASHA Organization [facility] Address Unknown Phone Unavailable Allergies, Adverse Reactions, Alerts Allergy Name Reaction Description Start Date Severity Status Provider No Known Allergies Paris Worley Conditions or Problems Problem Name Problem Code [...] Instruction NEXPLANON 68 MG SUBCUTANEOUS IMPLANT ETONOGESTREL 00154978986 Active Zuleima Santana MD Active ONE-A-DAY ADULT VITACRAVES+DHA ORAL TABLET CHEWABLE MULTIPLE VITAMIN 55697858114 Active Zuleima Santana MD Active Encounters Code Encounter Date Provider Facility CPT-36614 Level 3 New Patient 12:10:04 CDT Zuleima Santana MD [facility] CPT-82749 Level 3 Est. 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
--- OUTSIDE RECORDS SUMMARY | 2018-11-26 01:42 | XMS REPORT | Clinical Summary ---
Author Author Admin, SASHA Organization [facility] Address Unknown Phone Unavailable Allergies, Adverse Reactions, [...] Mao NEXPLANON 68 MG SC IMPL ETONOGESTREL 98719127270 Active Zuleima Santana MD Active ONE-A-DAY ADULT VITACRAVES+DHA ORAL CHEW MULTIPLE VITAMIN 86770568791 Active Zuleima Satnana MD Active Encounters Code Encounter Date Provider Facility CPT-85667 Level 3 New Patient 12:10:04 CDT Zuleima Santana MD [facility] CPT-72758 Level 3 Est. 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
--- OUTSIDE RECORDS SUMMARY | 2018-11-26 01:42 | XMS REPORT | Clinical Summary ---
Author Author Admin, [facility] Organization [facility] Address Unknown Phone Unavailable Allergies, [...] [facility] examination of defined subpopulations Medication List Medication Instructions Start Date Stop Date Generic Name NDC Status Provider Patient Instruction No Drug Therapy Prescribed - none known did ask Raquel Mao Encounters Code Encounter Date Provider Facility CPT-94259 Level 3 Est. 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
--- OUTSIDE RECORDS SUMMARY | 2018-11-26 01:42 | XMS REPORT | Clinical Summary ---
Author Author Admin, [facility] Organization [facility] Address Unknown Phone Unavailable Allergies, Adverse [...] Mao Encounters Code Encounter Date Provider Facility CPT-36441 Level 3 Est. 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
--- OUTSIDE RECORDS SUMMARY | 2018-11-26 01:42 | XMS REPORT | Clinical Summary ---
Author Author Admin, SASHA Organization [facility] Address Unknown Phone Unavailable Allergies, Adverse [...] Instruction NEXPLANON 68 MG SC IMPL ETONOGESTREL 22245524745 Active Zuleima Santana MD Active ONE-A-DAY ADULT VITACRAVES+DHA ORAL CHEW MULTIPLE VITAMIN 57300772917 Active Zuleima Santana MD Active Vital Signs Date Name Value Unit Range Description blood pressure, diastolic 78 mm[Hg] BP chery blood pressure, systolic 124 mm[Hg] BP sys height E&M 66 [in_us] Bdy height pulse rate E&M 78 /min Heart rate temperature E&M 97.7 [degF] Body temperature weight E&M 218 [lb_av] Weight Measured Diagnostic Results Date Name Value Unit Range Description Lab Report: Brlu-7-Dvujhbvmzs Alia/73070, ANTIBODY SCREEN, RBCW/REFL I, A ... - Blood bank antibody screen, serum NO ANTIBODIES DETECTED Rh antigen RH (D) NEGATIVE Lab Report: Fcgw-2-Dtxnkziabs Alia/33823, ANTIBODY SCREEN, RBCW/REFL I, A ... - Hematology Blood type A Lab Report: Thyroid Stimulating Hormone (L), Free Thyroxine (L) - Chemistry TSH 1.25 m[iU]/mL 0.36-3.74 thyroxine, serum, free 1.06 ng/dL 0.59-1.17 Encounters Code Encounter Date Provider Facility CPT-04158 Level 3 New Patient 12:10:04 CDT Zuleima Santana MD [facility] CPT-73088 Level 3 Est. 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 Procedures Code Procedure Name Date Entry Date Standard Description CPT-92873 Nexplanon Removal 12:10:05 CDT CPT-76474O Drug Screen Collection - XRAY USE ONLY 14:19:32 CDT
--- OUTSIDE RECORDS SUMMARY | 2018-11-26 01:42 | XMS REPORT | Continuity of Care Document ---
Author Organization Unknown Address Unknown Allergies There is no data. Medications There is no data. Problems Date Dx Coded Attending Type Code Diagnosis Diagnosed By 02/16/2017 N96 Recurrent loss without current 02/16/2017 Z30.9 Contraceptive management 03/03/2017 Z31.69 Preconception counseling 05/19/2018 Z34.90 Supervision of other normal Procedures There is no data. Results There is no data. Encounters ACCT No. Visit Date/Time Discharge Status Pt. Type Provider Facility Loc./Unit Complaint [id number] 06/13/2018 12:23:01 ACT Unknown
--- OUTSIDE RECORDS SUMMARY | 2018-11-26 01:42 | XMS REPORT | Clinical Summary ---
Author Author Admin, SASHA Organization [facility] Address Unknown Phone Unavailable Allergies, Adverse [...] Instruction NEXPLANON 68 MG SC IMPL ETONOGESTREL 44483459899 Active Zuleima Santana MD Active ONE-A-DAY ADULT VITACRAVES+DHA ORAL CHEW MULTIPLE VITAMIN 32466528556 Active Zuleima Santana MD Active Vital Signs Date Name Value Unit Range Description blood pressure, diastolic 78 mm[Hg] BP chery blood pressure, systolic 124 mm[Hg] BP sys height E&M 66 [in_us] Bdy height pulse rate E&M 78 /min Heart rate temperature E&M 97.7 [degF] Body temperature weight E&M 218 [lb_av] Weight Measured Diagnostic Results Date Name Value Unit Range Description Lab Report: Axce-6-Ffqgemzpcm Alia/60035, ANTIBODY SCREEN, RBCW/REFL I, A ... - Blood bank antibody screen, serum NO ANTIBODIES DETECTED Rh antigen RH (D) NEGATIVE Lab Report: Tjgw-4-Rbyoikdmms Alia/[id number], ANTIBODY SCREEN, RBCW/REFL I, A ... - Hematology Blood type A Lab Report: Thyroid Stimulating Hormone (L), Free Thyroxine (L) - Chemistry TSH 1.25 m[iU]/mL 0.36-3.74 thyroxine, serum, free 1.06 ng/dL 0.59-1.17 Encounters Code Encounter Date Provider Facility CPT-66774 Level 3 New Patient 12:10:04 CDT Zuleima Santana MD [facility] CPT-25303 Level 3 Est. Patient 16:47:53 MANAGER PLAN Corina Reyes APRN [facility] -[facility] Procedures Code Procedure Name Date Entry Date Standard Description CPT-77714 Nexplanon Removal 12:10:05 CDT CPT-48094H Drug Screen Collection - XRAY USE ONLY 14:19:32 CDT
--- OUTSIDE RECORDS SUMMARY | 2018-11-26 01:42 | XMS REPORT | Clinical Summary ---
Author Author Admin, SASHA Organization [facility] Address Unknown Phone Unavailable Allergies, Adverse [...] Mao NEXPLANON 68 MG SC IMPL ETONOGESTREL 97870928035 Active Zuleima Santana MD Active ONE-A-DAY ADULT VITACRAVES+DHA ORAL CHEW MULTIPLE VITAMIN 87622763783 Active Zuleima Santana MD Active Diagnostic Results Date Name Value Unit Range Description Lab Report: Bcnl-0-Auyxyrnuut Alia/23175, ANTIBODY SCREEN, RBCW/REFL I, A ... - Blood bank antibody screen, serum NO ANTIBODIES DETECTED Rh antigen RH (D) NEGATIVE Lab Report: Imkc-5-Cmefmlfqnd Alia/81604, ANTIBODY SCREEN, RBCW/REFL I, A ... - Hematology Blood type A Lab Report: Thyroid Stimulating Hormone (L), Free Thyroxine (L) - Chemistry TSH 1.25 m[iU]/mL 0.36-3.74 thyroxine, serum, free 1.06 ng/dL 0.59-1.17 Encounters Code Encounter Date Provider Facility CPT-16684 Level 3 New Patient 12:10:04 CDT Zuleima Santana MD [facility] CPT-57991 Level 3 Est. 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
--- OUTSIDE RECORDS SUMMARY | 2018-11-26 01:42 | XMS REPORT | Clinical Summary ---
Author Author Admin, SASHA Organization [facility] Address Unknown Phone Unavailable Allergies, Adverse Reactions, [...] Instruction NEXPLANON 68 MG SC IMPL ETONOGESTREL [id number] Active Zuleima Santana MD Active ONE-A-DAY ADULT VITACRAVES+DHA ORAL CHEW MULTIPLE VITAMIN [id number] Active Zuleima Santana MD Active Vital Signs Date Name Value Unit Range Description blood pressure, diastolic 78 mm[Hg] BP chery blood pressure, systolic 124 mm[Hg] BP sys height E&M 66 [in_us] Bdy height pulse rate E&M 78 /min Heart rate temperature E&M 97.7 [degF] Body temperature weight E&M 218 [lb_av] Weight Measured Diagnostic Results Date Name Value Unit Range Description Lab Report: [id number] Alia/[id number], ANTIBODY SCREEN, RBCW/REFL I, A ... - Blood bank antibody screen, serum NO ANTIBODIES DETECTED Rh antigen RH (D) NEGATIVE Lab Report: [id number] Alia/[id number], ANTIBODY SCREEN, RBCW/REFL I, A ... - Hematology Blood type A Lab Report: Thyroid Stimulating Hormone (L), Free Thyroxine (L) - Chemistry TSH 1.25 m[iU]/mL 0.36-3.74 thyroxine, serum, free 1.06 ng/dL 0.59-1.17 Encounters Code Encounter Date Provider Facility [id number] Level 3 New Patient 12:10:04 CDT Zuleima Santana MD [facility] CPT-26718 Level 3 Est. 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
[2018-11-26] MEDS ORDERED: OXYTOCIN/NORMAL SALINE 500 ML IV SCH (02:26)
[2018-11-26] MEDS: AMPICILLIN FOR IV USE 1,000 MG in WATER (STERILE) FOR INJECTION 7.4 ML IV SCH ×3 (03:42→12:04)
[2018-11-26] MEDS ORDERED: SUFENTA 0.6MCG/ML BUPIVA 0.125 100 ML ONE (05:43)
[2018-11-26] MEDS ORDERED: CATHETER FLUSH 10 ML SYR IV SCH ×2 (06:00→22:00)
[2018-11-26] MEDS ORDERED: NALOXONE 0.4 MG/ML 1 ML (NARCAN) VIAL IV PRN ×2 (06:15→08:00)
[2018-11-26] MEDS ORDERED: EPIDURAL (SUFENTA 0.6MCG/ML BUPIVA 0.125%) 100 ML BAG EPI SCH ×2 (06:15→08:00)
[2018-11-26] MEDS ORDERED: LACTATED RINGERS 1,000 ML IV ONE ×2 (06:15→07:46)
[2018-11-26] MEDS ORDERED: BUPIVACAINE 0.25% 30 ML (SENSORCAINE) VIAL ONE (07:03)
[2018-11-26] MEDS ORDERED: fentaNYL INJECTION 100 MCG/2 ML AMP ONE (07:03)
--- NOTE | 2018-11-26 07:48 | History & Physical-OB ---
OB - Chief Complaint & HPI Date/Time Date of Admission: Date of Admission: Nov 25, 2018 at 23:10 Date seen by a Provider: Nov 26, 2018 Time Seen by a Provider: 07:15 Chief Complaint/History OB-Reason for Admission/Chief: Onset of Labor Hx : 6 Hx Para: 1 Expected Date of Delivery: Dec 04, 2018 Gestational Age in Weeks: 38 Gestational Age in Days: 5 Admission Nurse Assessment Rev: Yes Allergies and Home Medications Allergies Coded Allergies: No Known Drug Allergies (Unverified , 11/25/18) Home Medications Vit/Iron Fumarate/FA 1 Each Tablet, 1 EACH PO DAILY, (Reported) Patient Home Medication List Home Medication List Reviewed: Yes OB - History Hx of Present Care: Yes Ultrasounds: Normal mid trimester US Obstetrical Complications: None Medical Complications: None Obstetrical History Hx : 6 Hx Para: 1 Hx Total # of Abortions (Spona: 4 Patient Past Medical History n/a Social History/Family History Alcohol Use: Denies Use Recreational Drug Use: No OB - Admission Exam Physical Exam Vitals: Vital Signs 11/26/18 11/26/18 06:30 07:00 Temp 98.9 Pulse 79 Resp 18 B/P (MAP) 134/82 (99) O2 Delivery Room Air HEENT: NCAT Heart: Rhythm Normal Lungs: Clear Abdomen: Gravid Extremities: Normal Reflexes: Normal Cervical Dilatation: 3cm Effacement: 75% Station: -1 Membranes: Ruptured Amniotic Fluid: Clear Heart Rate: 130's Accelerations: Accelerations Present Decelerations: No Decelerations Short Term Variability: Present Director Of Event Management Variability: Average (6-25) Contractions on Admission: 6-10 Minutes Apart Intensity: Moderate Labs Laboratory Tests Test 11/25/18 23:35 Range/Units White Blood Count 13.9 H 4.3-11.0 10^3/uL Red Blood Count 4.00 L 4.35-5.85 10^6/uL Hemoglobin 12.5 11.5-16.0 G/DL Hematocrit 37 35-52 % Mean Corpuscular Volume 93 80-99 FL Mean Corpuscular Hemoglobin 31 25-34 PG Mean Corpuscular Hemoglobin Concent 34 32-36 G/DL Red Cell Distribution Width 13.7 10.0-14.5 % Platelet Count 236 130-400 10^3/uL Mean Platelet Volume 10.1 7.4-10.4 FL Neutrophils (%) (Auto) 73 42-75 % Lymphocytes (%) (Auto) 18 12-44 % Monocytes (%) (Auto) 8 0-12 % Eosinophils (%) (Auto) 1 0-10 % Basophils (%) (Auto) 0 0-10 % Neutrophils # (Auto) 10.2 H 1.8-7.8 X 10^3 Lymphocytes # (Auto) 2.5 1.0-4.0 X 10^3 Monocytes # (Auto) 1.2 H 0.0-1.0 X 10^3 Eosinophils # (Auto) 0.1 0.0-0.3 10^3/uL Basophils # (Auto) 0.0 0.0-0.1 10^3/uL OB - Assessment/Plan/Diagnosis Assessment Assessment: active labor, rupture of membranes Admission Dx 33 yo @ 38 weeks SROM Active labor GBS pos Admission Status: Inpatient Order (span 2 midnights) Reason for Inpatient Admission: Active labor at term Plan Plan: Expectant Management Other Plan GBS treatment CHELI PANDYA DO Nov 26, 2018 07:48
[2018-11-26] MEDS ORDERED: CATHETER FLUSH 10 ML SYR IV PRN (08:00)
[2018-11-26] MEDS: D5 LR IV SOLUTION 1,000 ML IV SCH (08:13)
[2018-11-26] MEDS ORDERED: LIDOCAINE/EPI 2% 1:200,00 (XYLOCAINE) 10 ML VIAL ONE (14:17)
[2018-11-26] MEDS: OXYTOCIN/NORMAL SALINE 500 ML IV SCH ×3 (16:12→18:23)
--- NOTE | 2018-11-26 16:22 | OB Labor & Delivery Record ---
L&D History Date of Service Date of Service: Nov 26, 2018 History Expected Date of Delivery: Dec 04, 2018 Gestational Age in Weeks: 38 Hx : 6 Hx Para: 1 Complications Events: Routine care Operative Indications (Cesarea: N/A-Vaginal Delivery Intrapartal Events: None L&D Stage1 Stage One Onset of Labor - Date: Nov 26, 2018 Monitors and Tracing Monitor Mode: External Heart Rate: 135 Monitor Accelerations: Uniform Monitor Decelerations: None Station: -1 Intertype Operator Variability: Average (6-10) Short Term Variability: Present Presentation: Vertex Vital Signs VS - Last 72 Hours, by Label 11/25/18 11/26/18 11/26/18 11/26/18 23:05 04:45 05:00 05:15 Temp 97.8 Pulse 107 90 83 83 Resp 18 18 18 18 B/P (MAP) 149/85 (106) 119/74 (89) 125/74 (91) 121/69 (86) O2 Delivery Room Air Room Air Room Air Room Air 11/26/18 11/26/18 11/26/18 11/26/18 05:30 05:45 06:00 06:15 Pulse 76 83 88 80 Resp 18 18 18 18 B/P (MAP) 125/70 (88) 135/83 (100) 157/88 (111) 140/81 (100) O2 Delivery Room Air Room Air Room Air Room Air 11/26/18 11/26/18 11/26/18 11/26/18 06:30 06:45 07:00 07:15 Temp 98.9 Pulse 80 82 79 88 Resp 18 18 18 18 B/P (MAP) 136/81 (99) 137/84 (101) 134/82 (99) 144/75 (98) O2 Delivery Room Air Room Air Room Air Room Air 11/26/18 11/26/18 11/26/18 11/26/18 07:21 07:25 07:28 07:31 Temp 96.9 Pulse 93 96 94 115 Resp 18 18 18 18 B/P (MAP) 143/98 (113) 140/87 (104) 130/90 (103) 124/84 (97) Pulse Ox 99 98 98 100 O2 Delivery Room Air Room Air Room Air Room Air 11/26/18 11/26/18 11/26/186/19 07:34 07:37 07:40 07:43 Pulse 93 95 94 96 Resp 18 18 18 18 B/P (MAP) 133/79 (97) 119/64 (82) 123/69 (87) 126/72 (90) Pulse Ox 97 97 97 97 O2 Delivery Room Air Room Air Room Air Room Air 11/26/18 11/26/18 11/26/18 11/26/18 07:46 07:55 07:58 08:05 Pulse 96 114 97 86 Resp 18 18 18 18 B/P (MAP) 127/73 (91) 112/70 (84) 93/57 (69) 114/65 (81) Pulse Ox 97 98 97 97 O2 Delivery Room Air Room Air Room Air Room Air 11/26/18 11/26/18 11/26/18 11/26/18 08:08 08:15 08:30 08:45 Pulse 92 102 90 86 Resp 18 18 18 18 B/P (MAP) 128/74 (92) 122/71 (88) 129/80 (96) 118/71 (87) Pulse Ox 97 99 97 97 O2 Delivery Room Air Room Air Room Air Room Air 11/26/18 11/26/18 11/26/18 11/26/18 09:00 09:15 09:30 09:45 Pulse 98 96 94 96 Resp 18 18 18 18 B/P (MAP) 122/81 (95) 113/68 (83) 110/65 (80) 109/67 (81) O2 Delivery Room Air Room Air Room Air Room Air 11/26/18 11/26/18 11/26/18 11/26/18 10:00 10:15 10:30 10:45 Temp 97.4 Pulse 94 88 89 86 Resp 18 18 18 18 B/P (MAP) 116/79 (91) 133/86 (102) 134/88 (103) 136/88 (104) O2 Delivery Room Air Room Air Room Air Room Air 11/26/18 11/26/18 11/26/18 11/26/18 11:00 11:15 11:30 11:45 Pulse 91 92 96 96 Resp 18 18 18 18 B/P (MAP) 131/82 (98) 132/84 (100) 135/85 (102) 134/83 (100) O2 Delivery Room Air Room Air Room Air Room Air 11/26/18 11/26/18 11/26/18 11/26/18 12:00 12:15 12:30 12:45 Temp 97.8 97.7 Pulse 91 91 93 97 Resp 18 18 18 18 B/P (MAP) 131/81 (98) 123/69 (87) 128/81 (97) 132/81 (98) O2 Delivery Room Air Room Air Room Air Room Air 11/26/18 11/26/18 11/26/18 11/26/18 13:00 13:15 13:30 13:45 Pulse 102 95 96 90 Resp 18 18 18 18 B/P (MAP) 132/81 (98) 133/82 (99) 134/82 (99) 132/80 (97) O2 Delivery Room Air Room Air Room Air Room Air 11/26/18 11/26/18 11/26/18 14:00 14:15 14:30 Temp 97.2 Pulse 96 96 93 Resp 18 18 18 B/P (MAP) 133/79 (97) 132/81 (98) 131/80 (97) O2 Delivery Room Air Room Air Room Air Rupture of Membranes Spontaneous Ruture of Membrane: Yes Amniotic Membrane Rupture Time: 2230 Amniotic Membrane Fluid Desc.: Clear Vaginal Bleeding Description: Normal Show Induction/Anesthesia Epidural Cath Placement - Time: 07 Progress/Notes Pitocin augmentation used to max dose of 4 mu/min she progressed to complete and +2 station L&D Stage2 Stage Two Stage II Date: Nov 26, 2018 Monitors and Tracing Monitor Mode: External Heart Rate: 135 Monitor Accelerations: Uniform Monitor Decelerations: Variable Correction Variability: Average (6-10) Short Term Variability: Present Position: Right Occiput Anterior Presentation: Vertex Cord Descript/Complications Cord Vessel Description: 3 Vessels Delivery Type Delivery Method: Spontaneous Vaginal Anterior Shoulder: Right Episiotomy/Perineal Laceration Laceraction(s)/Extensions: Yes Episiotomy Description: Midline Degree (describe repair) midline episiotomy with right periurethral and clitoral lacerations repaired using 3-0 and 2-0 vicryl suture Condition of Infant Delivery 1 minute Comment: 9 5 minute Comment: 9 Notes Live male infant weight 8lbs 3 oz Condition of Condition of : Living Exam: No Observed Abnormalities Resuscitation Resuscitation: N/A - Spontaneous Resp L&D Stage3 Stage Three Stage III Date: Nov 26, 2018 Pictocin Pitocin Administration mu/min: 4 Pitocin ml/hr: 4 Pitocin Administration Comment: Pitocin 30 mu wide open at delivery of placenta Placenta Delivery Placenta Delivery: Spontaneous Delivery Summary Summary Estimated blood loss (mL): 350 Attending at delivery: Cheli Pandya DO Condition of Delivery Examined: Cervix Examined, Uterus Explored Post Hemorrhage: No Condition of Mother stable Condition of Infant (s) stable CHELI PANDYA DO Nov 26, 2018 16:22
[2018-11-26] MEDS ORDERED: DIBUCAINE (NUPERCAINAL) 1% OINT 30 GM TOP PRN (16:30)
[2018-11-26] MEDS ORDERED: BENZOCAINE/MENTHOL (DERMOPLAST) 56 ML CAN TP PRN (16:30)
[2018-11-26] MEDS ORDERED: WITCH HAZEL(TUCKS) 40 EA JAR TOP PRN (16:30)
[2018-11-26] MEDS ORDERED: MEASLES,MUMPS,RUBELLA 1 EA INJ SQ ONE (16:30)
[2018-11-26] MEDS ORDERED: TETANUS,DIPTH,PERTUSS P/F (BOOSTRIX) 0.5 ML VIAL IM ONE (16:30)
[2018-11-26] MEDS ORDERED: HYDROcodone/APAP 5 MG/325 MG (LORTAB) TAB PO PRN (16:30)
[2018-11-26] MEDS: IBUPROFEN 600 MG (MOTRIN) TAB PO SCH (18:14)
--- NOTE | 2018-11-26 18:15 | NUR ---
FFU/2, light rubra lochia noted, no clots expressed. Pericare performed, fresh vpad and underwear applied. Pt assisted to standing position and transferred to wheelchair without incident. Pt transferred to room 309 via wheelchair accompanied by RN, S.O., daughter and , along with all personal belongings. Pt assisted to bed. Pt and family oriented to room and call light. Room service and packet explained. Pt denies need to void at this time, encouraged to call when ready for assistance. Tucks, dermoplast, dibucaine ointment and motrin provided. Pt denies needs or concerns at this time.
[2018-11-27 00:12] VITALS: BP 121/64
[2018-11-27] MEDS: IBUPROFEN 600 MG (MOTRIN) TAB PO SCH ×4 (00:12→18:00)
[2018-11-27 06:23] VITALS: BP 132/60
[2018-11-27 06:47] LABS: BASOPHILS % (AUTO) 0 % (0-10); EOSINOPHILS # (AUTO) 0.1 10^3/uL (0.0-0.3); EOSINOPHILS % (AUTO) 1 % (0-10); HEMATOCRIT 31 % (35-52); HEMOGLOBIN 10.4 G/DL (11.5-16.0); LYMPHOCYTES # (AUTO) 2.2 X 10^3 (1.0-4.0); LYMPHOCYTES % (AUTO) 15 % (12-44); MEAN CORPUSCULAR HEMOGLOBIN 31 PG (25-34); MEAN CORPUSCULAR HGB CONC 33 G/DL (32-36); MEAN CORPUSCULAR VOLUME 95 FL (80-99); MEAN PLATELET VOLUME 10.5 FL (7.4-10.4); MONOCYTES # (AUTO) 1.3 X 10^3 (0.0-1.0); MONOCYTES % (AUTO) 9 % (0-12); NEUTROPHILS % (AUTO) 76 % (42-75); PLATELET COUNT 190 10^3/uL (130-400); RED CELL DISTRIBUTION WIDTH 13.6 % (10.0-14.5); WHITE BLOOD COUNT 14.6 10^3/uL (4.3-11.0)
--- NOTE | 2018-11-27 07:20 | Postpartum Progress Note ---
Note Note Day # 1 Subjective: Patient is without complaints. Ambulating, voiding. Tolerating a regular diet without nausea or vomiting. Normal lochia. Pain is well controlled with oral pain medications. Objective: Physical Exam: General - Alert and oriented, no apparent distress Abdomen - Soft, appropriately tender to palpation, non-distended, fundus firm at umbilicus Extremities - no edema, negative Kanwal's bilaterally Assessment: PPD 1 NVD Acute blood loss anemia Plan: Routine care. Encourage breast feeding. Encourage ambulation. Ferrous sulfate supplementation. Plan for discharge today Vitals - Labs Vital Signs - I&O Vital Signs Date Time Temp Pulse Resp B/P (MAP) Pulse Ox O2 Delivery O2 Flow Rate FiO2 11/27/18 06:23 98.1 91 18 132/60 (84) 98 Room Air 11/27/18 00:12 98.2 86 18 121/64 (83) 96 Room Air 11/26/18 20:04 97.9 114 18 131/64 (86) 96 Room Air 11/26/18 17:59 102 18 130/83 (99) Room Air 11/26/18 17:44 104 18 124/80 (95) Room Air 11/26/18 17:29 91 18 131/81 (98) Room Air 11/26/18 17:14 96 18 104/66 (79) Room Air 11/26/18 16:59 100 18 101/62 (75) Room Air 11/26/18 16:44 98.4 99 18 108/64 (79) Room Air 11/26/18 16:29 106 18 114/54 (74) Room Air 11/26/18 16:15 110 18 120/61 (80) Room Air 11/26/18 15:45 98 18 115/76 (89) Room Air 11/26/18 15:30 97.7 88 18 114/75 (88) Room Air 11/26/18 15:15 83 18 118/62 (80) Room Air 11/26/18 15:00 86 18 119/68 (85) Room Air 11/26/18 14:45 97 18 116/63 (80) Room Air 11/26/18 14:30 97.2 93 18 131/80 (97) Room Air 11/26/18 14:15 96 18 132/81 (98) Room Air 11/26/18 14:00 96 18 133/79 (97) Room Air 11/26/18 13:45 90 18 132/80 (97) Room Air 11/26/18 13:30 96 18 134/82 (99) Room Air 11/26/18 13:15 95 18 133/82 (99) Room Air 11/26/18 13:00 102 18 132/81 (98) Room Air 11/26/18 12:45 97.7 97 18 132/81 (98) Room Air 11/26/18 12:30 93 18 128/81 (97) Room Air 11/26/18 12:15 91 18 123/69 (87) Room Air 11/26/18 12:00 97.8 91 18 131/81 (98) Room Air 11/26/18 11:45 96 18 134/83 (100) Room Air 11/26/18 11:30 96 18 135/85 (102) Room Air 11/26/18 11:15 92 18 132/84 (100) Room Air 11/26/18 11:00 91 18 131/82 (98) Room Air 11/26/18 10:45 86 18 136/88 (104) Room Air 11/26/18 10:30 89 18 134/88 (103) Room Air 11/26/18 10:15 88 18 133/86 (102) Room Air 11/26/18 10:00 97.4 94 18 116/79 (91) Room Air 11/26/18 09:45 96 18 109/67 (81) Room Air 11/26/18 09:30 94 18 110/65 (80) Room Air 11/26/18 09:15 96 18 113/68 (83) Room Air 11/26/18 09:00 98 18 122/81 (95) Room Air 11/26/18 08:45 86 18 118/71 (87) 97 Room Air 11/26/18 08:30 90 18 129/80 (96) 97 Room Air 11/26/18 08:15 102 18 122/71 (88) 99 Room Air 11/26/18 08:08 92 18 128/74 (92) 97 Room Air 11/26/18 08:05 86 18 114/65 (81) 97 Room Air 11/26/18 07:58 97 18 93/57 (69) 97 Room Air 11/26/18 07:55 114 18 112/70 (84) 98 Room Air 11/26/18 07:46 96 18 127/73 (91) 97 Room Air 11/26/18 07:43 96 18 126/72 (90) 97 Room Air 11/26/18 07:40 94 18 123/69 (87) 97 Room Air 11/26/18 07:37 95 18 119/64 (82) 97 Room Air 11/26/18 07:34 93 18 133/79 (97) 97 Room Air 11/26/18 07:31 115 18 124/84 (97) 100 Room Air 11/26/18 07:28 94 18 130/90 (103) 98 Room Air 11/26/18 07:25 96 18 140/87 (104) 98 Room Air 11/26/18 07:21 96.9 93 18 143/98 (113) 99 Room Air I & O 11/27/18 07:00 Intake Total 3014.8 ml Output Total 750 ml Balance 2264.8 ml Labs Laboratory Tests 11/27/18 06:33: White Blood Count 14.6H, Red Blood Count 3.32L, Hemoglobin 10.4L, Hematocrit 31L , Mean Corpuscular Volume 95, Mean Corpuscular Hemoglobin 31, Mean Corpuscular Hemoglobin Concent 33, Red Cell Distribution Width 13.6, Platelet Count 190, Mean Platelet Volume 10.5H, Neutrophils (%) (Auto) 76H, Lymphocytes (%) (Auto) 15, Monocytes (%) (Auto) 9, Eosinophils (%) (Auto) 1, Basophils (%) (Auto) 0, Neutrophils # (Auto) 11.0H, Lymphocytes # (Auto) 2.2, Monocytes # (Auto) 1.3H, Eosinophils # (Auto) 0.1, Basophils # (Auto) 0.0 CHELI PANDYA DO Nov 27, 2018 07:20
--- NOTE | 2018-11-27 07:21 | Discharge Inst-Women's Service ---
Discharge Inst-Women's Serv Depart Medication/Instructions New, Converted or Re-Newed RX: RX on Chart Consults/Follow Up Additional Follow Up: Yes Orders/Referrals Dr. Pandya in 6 weeks Activity Activity: Activity as Tolerated Driving Instructions: No Driving for 1 Week NO SMOKING: NO SMOKING Nothing Inside Vagina: No Douching, No J[place], No Tampons Diet Discharge Diet: No Restrictions Symptoms to Report to : Bleeding Excessive, Pain Increased, Fever Over 101 Degrees F, Vaginal Bleeding Increase, Questions/Concerns For Any Problems or Questions: Contact Your Physician CHELI PANDYA DO Nov 27, 2018 07:21
[2018-11-27] MEDS ORDERED: FERR325T18 PO (07:23)
[2018-11-27] MEDS ORDERED: IBUP-844 PO (07:23)
[2018-11-27] MEDS ORDERED: DOCU100C37 PO (07:23)
--- NOTE | 2018-11-27 07:30 | NUR ---
DR. PANDYA HERE TO SEE PT. PLAN FOR DISCHARGE THIS AFTERNOON IF BABY ABLE TO GO HOME.
--- NOTE | 2018-11-27 08:29 | Anesthesia-Regional Post-Op ---
Regional Patient Condition Mental Status: Alert, Oriented x3 Circulation: Same as Pre-Op Headache: Absent Sensation: Full Recovery Motor Block: Absent Post Op Complications Complications None Follow Up Care/Instructions Patient Instructions None needed. Anesthesia/Patient Condition Patient is doing well, no complaints, stable vital signs, no apparent adverse anesthesia problems. No complications reported per nursing. D/C home per [facility] [place] Criteria: Yes DANICA LANDIN CRNA Nov 27, 2018 08:29
[2018-11-27 08:30] VITALS: BP 119/58
--- NOTE | 2018-11-27 08:30 | NUR ---
A.M. ASSESSMENT COMPLETED. VSS. SHOWER SET UP. CARING FOR INFANT IN ROOM. BOTTLEFEEDING.
[2018-11-27] MEDS: FERROUS SULF 325 MG (IRON) TAB PO SCH (08:32)
[2018-11-27] MEDS: PRENATAL VITAMIN 1 EA TAB PO SCH (08:32)
[2018-11-27] MEDS: DOCUSATE SODIUM 100 MG (COLACE) CAP PO SCH (08:33)
--- NOTE | 2018-11-27 10:30 | NUR ---
CARING FOR INFANT IN ROOM. NO COMPLAINTS.
--- NOTE | 2018-11-27 12:00 | NUR ---
LOTS OF VISITORS AT BEDSIDE. PT SHOWERED AND FEELING WELL.
[2018-11-27 12:10] VITALS: BP 130/63
--- NOTE | 2018-11-27 13:35 | NUR ---
INFANT OT NURSERY FOR CIRCUMCISION.
--- NOTE | 2018-11-27 14:30 | NUR ---
CARING FOR INFANT IN ROOM. OFFERS NO COMPLAINTS.
--- NOTE | 2018-11-27 16:00 | NUR ---
HOPING TO GO HOME THIS EVENING IF BILIRUBIN IS OKAY. FAMILY AT BEDSIDE.
[2018-11-27 16:50] VITALS: BP 121/69
--- NOTE | 2018-11-27 18:00 | NUR ---
MOM WILL STAY A PATIENT R/T STAYING. DR. PANDYA NOTIFIED OF MOM AND BABY STAYING. ROUTINE MOTRIN GIVEN. PT UNPACKING BELONGINGS. PT IS TEARFUL WHEN ENTERED ROOM. STATES JUST WANTED TO GO HOME.
[2018-11-28 00:04] VITALS: BP_SYST 108; BP_SYST 147; BP_DIAS 55; BP_DIAS 84
[2018-11-28] MEDS: DOCUSATE SODIUM 100 MG (COLACE) CAP PO SCH ×2 (00:04→07:26)
[2018-11-28] MEDS: IBUPROFEN 600 MG (MOTRIN) TAB PO SCH ×3 (00:04→12:30)
[2018-11-28 06:06] VITALS: BP 125/80
[2018-11-28 07:20] VITALS: BP 139/63
[2018-11-28] MEDS: PRENATAL VITAMIN 1 EA TAB PO SCH (07:26)
[2018-11-28] MEDS: FERROUS SULF 325 MG (IRON) TAB PO SCH (07:26)
--- NOTE | 2018-11-28 07:53 | Postpartum Progress Note ---
Note Note Day # 2 Subjective: Patient is without complaints. Ambulating, voiding. Tolerating a regular diet without nausea or vomiting. Normal lochia. Pain is well controlled with oral pain medications. Objective: Physical Exam: General - Alert and oriented, no apparent distress Abdomen - Soft, appropriately tender to palpation, non-distended, fundus firm at umbilicus Extremities - no edema, negative Kanwal's bilaterally Assessment: PPD 2 NVD Acute blood loss anemia Plan: Routine care. Encourage breast feeding. Encourage ambulation. Ferrous sulfate supplementation. Plan for discharge today Vitals - Labs Vital Signs - I&O Vital Signs Date Time Temp Pulse Resp B/P (MAP) Pulse Ox O2 Delivery O2 Flow Rate FiO2 11/28/18 07:20 80 139/63 97 Room Air 11/28/18 06:06 98.3 97 18 125/80 (95) 98 Room Air 11/28/18 00:04 98.3 87 18 147/84 (105) 98 Room Air 11/27/18 16:50 98.4 81 18 121/69 (86) 98 Room Air 11/27/18 12:10 98.8 88 18 130/63 (85) 97 Room Air 11/27/18 08:30 97.9 83 18 119/58 (78) 99 Room Air CHELI PANDYA DO Nov 28, 2018 07:53
--- NOTE | 2018-11-28 09:00 | NUR ---
Informed mom that Dr Caba will see today - with usual rounds at 1030. Pt anxious to be discharged. 1230 Mom frustrated about prolonged stay - baby to get EKG and physician will have to view results. 1320 Discharged to home - ambulatory with , Lesley RAMIREZ, and daughter. Baby in car seat.
== END 2018-11-28 13:20 | disposition home or self-care (01) | DRG 806 ==
LOC: WSo 22:54 → LDRP 22:54 → WSo 23:09 → LDRP 23:10
PROVIDERS: ADMIT Obstetrics & Gynecology; ATTEND Obstetrics & Gynecology
PROC: 10E0XZZ Delivery of Products of Conception, External Approach (ICD-10-PCS; principal; 2018-11-26)
PROC: 0W8NXZZ Division of Female Perineum, External Approach (ICD-10-PCS; 2018-11-26)
PROC: 0HQ9XZZ Repair Perineum Skin, External Approach (ICD-10-PCS; 2018-11-26)
DX: O99.824 Streptococcus B carrier state complicating childbirth (principal); O70.0 First degree perineal laceration during delivery; O90.81 Anemia of the puerperium; D62 Acute posthemorrhagic anemia; Z3A.38 38 weeks gestation of pregnancy; Z37.0 Single live birth
CPT/HCPCS: 36415; 85025; 86850; 86900; 86901; 99212

== ENCOUNTER → 2022-01-19 | Outpatient (CLI) | payer BC ==
[~2022-01-19] MED LIST: DOCU100C37 PO; FERR325T18 PO; IBUP-844 PO; PREN1TAB19 PO
--- NOTE | 2022-01-19 09:32 | Diagnostic Imaging Report ---
CLINICAL INDICATION: In June, the patient had wisdom teeth out and has a headache and left-sided pain. EXAM: Axial CT scan of the maxillofacial structures without IV contrast . Coronal and sagittal reformations were performed. Auto Exposure Controls were utilized during the CT exam to meet ALARA standards for radiation dose reduction. COMPARISON: None. FINDINGS: PARANASAL SINUSES: FRONTAL: There is complete consolidation of the left frontal sinus consolidation. ETHMOID: There is moderate amount of consolidation involving left ethmoid sinuses. MAXILLARY: There is complete consolidation left maxillary sinus with medial directed convexity of the medial wall of the left maxillary sinus. There is bony defect involving the posterior inferior wall left maxillary sinus. There is adjacent soft tissue thickening adjacent to the removed left maxillary wisdom tooth. SPHENOID: Unremarkable. OTHER PARANASAL SINUS FINDINGS: None. NASAL SEPTUM: There is 2 mm of leftward nasal septal deviation anteriorly. VISUALIZED TEMPORAL BONE STRUCTURES: Unremarkable. BONY STRUCTURES: Unremarkable. EXTRACRANIAL SOFT TISSUE/ ORBITS: Unremarkable. IMPRESSION: 1: There is consolidation of the left frontal sinus, left ethmoid sinus, left maxillary sinus and ostiomeatal unit obstruction pattern. There is medial directed convexity of the medial wall of the left maxillary sinus which may represent a mucocele or polyp involving the left maxillary sinus. 2: There is a short segment bony defect involving the posterior inferior aspect of the left maxillary sinus which is in the region of the removed left wisdom tooth. There is mild adjacent inflammation seen. 3: There is mild leftward nasal septal deviation. Dictated by: Dictated on workstation # [id number]
== END ==
LOC: RAD 08:24
PROVIDERS: ATTEND Otolaryngology Otolaryngology/Facial Plastic Surgery
DX: J32.9 Chronic sinusitis, unspecified (principal); K04.7 Periapical abscess without sinus; J34.2 Deviated nasal septum
CPT/HCPCS: 70486